=== PATIENT | male | born 1980 | race Two or more races ===

== ENCOUNTER 2023-07-03 16:25 | Emergency (ER) | payer MEDICAID ==
[~2023-07-03] VITALS: Ht 175.3 cm; Wt 123.9 kg
[2023-07-03 16:35] VITALS: BP 162/95; PULSE 69; RESP 20; O2SAT 98
[2023-07-03] MEDS ORDERED: CYCL-837 PO (18:43)
[2023-07-03] MEDS ORDERED: LISI20TA56 PO (18:43)
[2023-07-03] MEDS ORDERED: IBUP-1456 PO (18:43)
== END 2023-07-03 20:34 | disposition home or self-care (01) ==
LOC: ER 16:25
DX: S22.32XA Fracture of one rib, left side, initial encounter for closed fracture (principal); S60.512A Abrasion of left hand, initial encounter; M54.2 Cervicalgia; I10 Essential (primary) hypertension; V49.9XXA Car occupant (driver) (passenger) injured in unspecified traffic accident, initial encounter; Y93.89 Activity, other specified; Y92.89 Other specified places as the place of occurrence of the external cause; Y99.8 Other external cause status
CPT/HCPCS: 70450; 72125; 73130; 74176